=== PATIENT | female | born 1995 | race Caucasian/White ===

== ENCOUNTER 2016-10-12 17:10 | Day surgery (SDCO) | payer OTHER ==
[2016-10-12 19:16] LABS: HCT 36.2 % (37.0-47.0); HGB 12.4 g/dl (12.5-16.0); MCH 29.7 pg (25.0-31.0); MCHC 34.3 g/dL (32.0-36.0); MCV 86.6 fL (78.0-100.0); MPV 10.1 fL (6.0-9.5); RBC 4.18 M/uL (4.20-5.40); WBC 11.7 K/uL (4.0-10.5)
[2016-10-12 19:42] LABS: FT4 (FREE T4) 0.977 ng/dL (0.93-1.70); TSH (THYROID STIM HORMONE) 2.46 uIU/mL (0.270-4.200)
== END 2016-10-13 10:51 | disposition home or self-care (01) ==
LOC: FOB 17:10
PROVIDERS: ADMIT Obstetrics & Gynecology
DX: O76 Abnormality in fetal heart rate and rhythm complicating labor and delivery (principal); Z3A.36 36 weeks gestation of pregnancy; O99.213 Obesity complicating pregnancy, third trimester; Z68.41 Body mass index [BMI] 40.0-44.9, adult; F90.9 Attention-deficit hyperactivity disorder, unspecified type; O99.343 Other mental disorders complicating pregnancy, third trimester; Z98.890 Other specified postprocedural states; Z83.3 Family history of diabetes mellitus; Z82.49 Family history of ischemic heart disease and other diseases of the circulatory system; O99.333 Smoking (tobacco) complicating pregnancy, third trimester
CPT/HCPCS: 36415; 84439; 84443; G0378

== ENCOUNTER 2016-11-02 20:03 | Inpatient (IN) | payer OTHER ==
[2016-11-02 21:36] LABS: HCT 36.8 % (37.0-47.0); HGB 12.7 g/dl (12.5-16.0); MCH 29.5 pg (25.0-31.0); MCHC 34.5 g/dL (32.0-36.0); MCV 85.6 fL (78.0-100.0); MPV 9.7 fL (6.0-9.5); RBC 4.3 M/uL (4.20-5.40); RDW 13.2 % (11.5-14.0); WBC 12.8 K/uL (4.0-10.5)
[2016-11-02 21:37] LABS: BILIRUBIN NEGATIVE (NEGATIVE); BLOOD TRACE-INTACT Ery/uL (NEGATIVE); CLARITY CLEAR (CLEAR); COLOR YELLOW (YELLOW); GLUCOSE (U) NORMAL (NORMAL); KETONE (U) NEGATIVE (NEGATIVE); LEUKOCYTES TRACE Leu/uL (NEGATIVE); NITRITE NEGATIVE (NEGATIVE); PROTEIN NEGATIVE (NEGATIVE); UROBILINOGEN 0.2 mg/dL (0.2-1.0)
[2016-11-02 21:41] LABS: BACTERIA 1+; URINARY RBC RARE; URINARY WBC RARE
[2016-11-02 21:46] LABS: AMPHETAMINES NEGATIVE (NEGATIVE); BARBITURATES NEGATIVE (NEGATIVE); BENZODIAZEPINES NEGATIVE (NEGATIVE); COCAINE NEGATIVE (NEGATIVE); MARIJUANA (THC) NEGATIVE (NEGATIVE); METHADONE NEGATIVE (NEGATIVE); TRICYCLIC ANTIDEPRESSANT NEGATIVE (NEGATIVE)
[2016-11-04 08:30] LABS: HCT 32.1 % (37.0-47.0); HGB 11.1 g/dl (12.5-16.0); MCH 29.7 pg (25.0-31.0); MCHC 34.6 g/dL (32.0-36.0); MCV 85.8 fL (78.0-100.0); MPV 9.6 fL (6.0-9.5); RBC 3.74 M/uL (4.20-5.40); RDW 13.1 % (11.5-14.0); WBC 17.7 K/uL (4.0-10.5)
== END 2016-11-05 18:29 | disposition home or self-care (01) | DRG 775 ==
LOC: FOB 20:03
PROVIDERS: ADMIT Obstetrics & Gynecology
PROC: 3E0P7GC Introduction of Other Therapeutic Substance into Female Reproductive, Via Natural or Artificial Opening (ICD-10-PCS; principal; 2016-11-02)
PROC: 10907ZC Drainage of Amniotic Fluid, Therapeutic from Products of Conception, Via Natural or Artificial Opening (ICD-10-PCS; 2016-11-02)
PROC: 4A1HX4Z Monitoring of Products of Conception, Cardiac Electrical Activity, External Approach (ICD-10-PCS; 2016-11-02)
PROC: 10E0XZZ Delivery of Products of Conception, External Approach (ICD-10-PCS; 2016-11-03)
PROC: 0KQM0ZZ Repair Perineum Muscle, Open Approach (ICD-10-PCS; 2016-11-03)
DX: O36.5930 Maternal care for other known or suspected poor fetal growth, third trimester, not applicable or unspecified (principal); E66.9 Obesity, unspecified; F32.9 Major depressive disorder, single episode, unspecified; O70.1 Second degree perineal laceration during delivery; Z3A.39 39 weeks gestation of pregnancy; Z37.0 Single live birth; F90.9 Attention-deficit hyperactivity disorder, unspecified type; O99.214 Obesity complicating childbirth; E03.9 Hypothyroidism, unspecified; Z87.891 Personal history of nicotine dependence; R82.5 Elevated urine levels of drugs, medicaments and biological substances; F12.10 Cannabis abuse, uncomplicated
CPT/HCPCS: 36415; 80305; 81001; 88307; J2795

== ENCOUNTER 2016-11-22 22:40 | Emergency (ER) | payer OTHER ==
[2016-11-23 01:05] LABS: BILIRUBIN NEGATIVE (NEGATIVE); BLOOD 3+ Ery/uL (NEGATIVE); CLARITY CLEAR (CLEAR); COLOR YELLOW (YELLOW); GLUCOSE (U) NORMAL (NORMAL); KETONE (U) NEGATIVE (NEGATIVE); LEUKOCYTES 1+ Leu/uL (NEGATIVE); NITRITE POSITIVE (NEGATIVE); PROTEIN NEGATIVE (NEGATIVE); UROBILINOGEN 0.2 mg/dL (0.2-1.0); pH 6.5 (5.0-9.0)
[2016-11-23 01:10] LABS: BACTERIA 3+; MUCOUS MODERATE; URINARY RBC 20-50
[2016-11-23 01:51] LABS: HCT 36.2 % (37.0-47.0); HGB 12.1 g/dl (12.5-16.0); MCH 29.2 pg (25.0-31.0); MCHC 33.4 g/dL (32.0-36.0); MCV 87.2 fL (78.0-100.0); MPV 9.1 fL (6.0-9.5); RBC 4.15 M/uL (4.20-5.40); RDW 12.9 % (11.5-14.0); WBC 9.6 K/uL (4.0-10.5)
== END 2016-11-23 01:57 | disposition home or self-care (01) ==
LOC: FER 22:40
PROVIDERS: Emergency Medicine Emergency Medical Services
DX: O72.1 Other immediate postpartum hemorrhage (principal); O86.22 Infection of bladder following delivery; O99.335 Smoking (tobacco) complicating the puerperium; F17.210 Nicotine dependence, cigarettes, uncomplicated
CPT/HCPCS: 36415; 81001; 99284